=== PATIENT | male | born 1985 ===

== ENCOUNTER 2017-02-09 11:00 | Emergency (ER) | payer BC, MEDICAID ==
[2017-02-09 11:13] VITALS: BMI 21.5
[2017-02-09] MEDS ORDERED: Sodium Chloride 0.9% 1,000 ML IV STA (11:29)
[2017-02-09 11:35] VITALS: PULSE 78; RESP 20; O2SAT 98
[2017-02-09 11:54] LABS: BASO % 0.1 % (0.0-2.0); EOS % 0.1 % (0.0-4.0); HEMOGLOBIN 15.5 g/dL (12.0-18.0); LYMPH # 0.9 K/uL (1.0-4.3); LYMPH % 8.1 % (20.0-40.0); MEAN CELL VOLUME 90.1 fl (80.0-94.0); MEAN CORPUSCULAR HEMOGLOBIN 30.5 pg (27.0-31.0); MEAN CORPUSCULAR HGB CONC 33.9 g/dL (33.0-37.0); MEAN PLATELET VOLUME 8.2 fl (7.2-11.7); MONO # 0.3 K/uL (0.0-0.8); MONO % 2.3 % (0.0-10.0); NEUT # 10.2 K/uL (1.8-7.0); NEUT % 89.4 % (50.0-75.0); NRBC % 0.1 % (0.0-0.0); PLATELET COUNT 252 K/uL (130-400); RBC 5.09 Mil/uL (4.40-5.90); RED CELL DISTRIBUTION WIDTH 12.7 % (11.5-14.5); WHITE BLOOD COUNT 11.4 K/uL (4.8-10.8)
[2017-02-09 11:58] LABS: ALB/GLOB RATIO 1.6 (1.0-2.1); ALBUMIN 5.1 g/dL (3.5-5.0); ALT/SGPT 36 U/L (21-72); AST/SGOT 25 U/L (17-59); BLOOD UREA NITROGEN 14 mg/dl (9-20); CALCIUM 9.9 mg/dL (8.4-10.2); GFR AFRICAN-AMERICAN > 60; GFR NON-AFRICAN AMERICAN > 60; LIPASE 30 U/L (23-300)
--- NOTE | 2017-02-09 12:23 | ED PDOC ---
HPI: Abdomen Time Seen by Provider: 02/09/17 11:17 Chief Complaint (Nursing): GI Problem Chief Complaint (Provider): Vomiting History Per: Patient History/Exam Limitations: no limitations Onset/Duration Of Symptoms: Hrs Current Symptoms Are (Timing): Still Present Severity: Mild Associated Symptoms: Vomiting, Diarrhea Additional Complaint(s): Patient is a 31 year old male presenting to the ED complaining of vomiting since last night. Patient reports he had sushi last night. Vomiting is associated with several episodes of water diarrhea and body aches. Patient denies fever, chills, recent travel, or any medication. PMD: none Past Medical History Reviewed: Historical Data, Nursing Documentation, Vital Signs Vital Signs: Last Vital Signs Temp 97.6 F 02/09/17 12:55 Pulse 78 02/09/17 12:55 Resp 20 02/09/17 12:55 BP 128/74 02/09/17 12:55 Pulse Ox 98 02/09/17 12:55 - Medical History PMH: No Chronic Diseases - Surgical History Surgical History: No Surg Hx - Family History Family History: States: No Known Family Hx - Immunization History Hx Tetanus Toxoid Vaccination: (unk) Hx Influenza Vaccination: No Hx Pneumococcal Vaccination: No - Home Medications Home Medications: Ambulatory Orders Medication Instructions Recorded Loperamide [Loperamide HCl] 2 mg PO PRN PRN #24 cap 12/22/15 Ondansetron [Zofran Odt] 1 - 2 tab PO .Q4-6H PRN #20 odt 12/22/15 Ondansetron ODT [Zofran ODT] 4 mg PO Q8 PRN #12 odt 02/09/17 - Allergies Allergies/Adverse Reactions: Allergies Allergy/AdvReac Type Severity Reaction Status Date / Time No Known Allergies Allergy Verified 03/30/14 09:43 Review of Systems ROS Statement: Except As Marked, All Systems Reviewed And Found Negative Constitutional: Positive for: Other (body aches). Negative for: Fever, Chills Gastrointestinal: Positive for: Vomiting, Diarrhea. Negative for: Abdominal Pain Physical Exam - Reviewed Nursing Documentation Reviewed: Yes Vital Signs Reviewed: Yes - Physical Exam Appears: Positive for: Well, Non-toxic, No Acute Distress Head Exam: Positive for: ATRAUMATIC, NORMAL INSPECTION, NORMOCEPHALIC Skin: Positive for: Normal Color, Warm, DRY Eye Exam: Positive for: EOMI, Normal appearance, PERRL Neck: Positive for: Normal, Painless ROM Cardiovascular/Chest: Positive for: Regular Rate, Rhythm. Negative for: Gallop , Murmur Respiratory: Positive for: Normal Breath Sounds. Negative for: Accessory Muscle Use, Rhonchi, Respiratory Distress Gastrointestinal/Abdominal: Positive for: Normal Exam, Soft. Negative for: Tenderness, Mass, Distended, Guarding, Rebound Extremity: Positive for: Normal ROM Neurologic/Psych: Positive for: Alert, Oriented - Laboratory Results Result Diagrams: 02/09/17 11:40 02/09/17 11:40 - ECG O2 Sat by Pulse Oximetry: 98 (RA) Pulse Ox Interpretation: Normal - Progress Re-evaluation Time: 12:40 Condition: Re-examined, Improved Medical Decision Making Medical Decision Making: Time: 11:20 Impression: Vomiting and Diarrhea DDx: gastritis v gastroenteritis v food poisoning Plan: CBC Bentyl 10 mg PO IVF Zofran 4 mg IV Scribe Attestation Documented by Zeinab Wallace acting as a scribe for Morales Montgomery MD. Provider Attestation: All medical record entries made by the Scribe were at my direction and personally dictated by me. I have reviewed the chart and agree that the record accurately reflects my personal performance of the history, physical exam, medical decision making, and the department course for this patient. I have also personally directed, reviewed, and agree with the discharge instructions and disposition. Disposition - Clinical Impression Clinical Impression: Gastroenteritis - Patient ED Disposition Is Patient to be Admitted: No Doctor Will See Patient In The: Office Counseled Patient/Family Regarding: Studies Performed, Diagnosis, Need For Followup - Disposition Referrals: [facility] [Outside] Disposition: Routine/Home Disposition Time: 12:47 Condition: GOOD Additional Instructions: Follow up with your PCP in 2-3 days. Return for worsening. Prescriptions: Ondansetron ODT [Zofran ODT] 4 mg PO Q8 PRN #12 odt PRN Reason: Nausea/Vomiting Instructions: Gastroenteritis (ED)
[2017-02-09 12:57] VITALS: BP 128/74; TEMP 97.6
[2017-02-09 13:01] LABS: LYMPHOCYTE 7 % (20-50); MONOCYTE 2 % (0-10); NEUTROPHIL 91 % (42-75); PLATELET ESTIMATE NORMAL (NORMAL); TOTAL CELLS COUNTED 100
[2017-02-09 13:02] LABS: ANISOCYTOSIS SLIGHT; LARGE PLATELETS PRESENT
== END 2017-02-09 12:57 | disposition home or self-care (01) ==
LOC: H.ER 11:00
DX: K52.9 Noninfective gastroenteritis and colitis, unspecified (principal)

== ENCOUNTER 2017-04-15 06:52 | Emergency (ER) | payer MEDICAID, OTHER ==
[2017-04-15 07:12] VITALS: BMI 18.8
--- NOTE | 2017-04-15 08:19 | ED PDOC ---
HPI: General Adult Time Seen by Provider: 04/15/17 07:23 Chief Complaint (Nursing): Flu-like Symptoms History Per: Patient History/Exam Limitations: no limitations Onset/Duration Of Symptoms: Days (4), Gradual Current Symptoms Are (Timing): Still Present Severity: Moderate Additional History Per: Patient Additional Complaint(s): pt states Pt headache, loss of appetite, nausea, vomiting all day yesterday & generalized body aches x 4 day. no travel or sick contacts. similar sx to influenza in the past. mild burning cp constant for 4 days Past Medical History Reviewed: Historical Data, Nursing Documentation, Vital Signs Vital Signs: Last Vital Signs Temp 100.1 F H 04/15/17 07:10 Pulse 94 H 04/15/17 07:10 Resp 16 04/15/17 07:10 BP 124/67 04/15/17 07:10 Pulse Ox 99 04/15/17 09:52 - Medical History PMH: No Chronic Diseases - Family History Family History: States: Unknown Family Hx - Living Arrangements Living Arrangements: With Family - Social History Current smoker - smoking cessation education provided: No Drugs: Denies - Immunization History Hx Tetanus Toxoid Vaccination: (unk) Hx Influenza Vaccination: No Hx Pneumococcal Vaccination: No - Home Medications Home Medications: Ambulatory Orders Medication Instructions Recorded Ondansetron [Zofran Odt] 4 mg PO TID PRN #15 odt 04/15/17 - Allergies Allergies/Adverse Reactions: Allergies Allergy/AdvReac Type Severity Reaction Status Date / Time No Known Allergies Allergy Verified 03/30/14 09:43 Review of Systems ROS Statement: Except As Marked, All Systems Reviewed And Found Negative Constitutional: Positive for: Fever, Chills, Malaise Cardiovascular: Positive for: Chest Pain. Negative for: Palpitations Respiratory: Negative for: Shortness of Breath Gastrointestinal: Positive for: Nausea, Vomiting. Negative for: Abdominal Pain , Diarrhea Genitourinary Male: Negative for: Dysuria Musculoskeletal: Negative for: Neck Pain Neurological: Positive for: Headache. Negative for: Weakness, Numbness, Incoordination, Change in Speech, Confusion, Seizures, Altered Mental Status, Dizziness Physical Exam - Reviewed Nursing Documentation Reviewed: Yes Vital Signs Reviewed: Yes - Physical Exam Appears: Positive for: Uncomfortable Head Exam: Positive for: ATRAUMATIC, NORMAL INSPECTION, NORMOCEPHALIC Eye Exam: Positive for: Normal appearance, EOMI, PERRL ENT: Positive for: Pharynx Is (mild erythema), TM Is/Are (nml bl), Pharyngeal Erythema. Negative for: Sinus Pain/Drainage, Tonsillar Exudate, Tonsillar Swelling Neck: Positive for: Normal, Painless ROM, Supple Cardiovascular/Chest: Positive for: Regular Rate, Rhythm, Chest Non Tender. Negative for: Edema, Gallop, Murmur, Bradycardia, Tachycardia Respiratory: Positive for: Normal Breath Sounds. Negative for: Decreased Breath Sounds, Accessory Muscle Use, Crackles, Rales, Rhonchi, Stridor, Wheezing , Respiratory Distress Gastrointestinal/Abdominal: Positive for: Normal Exam, Bowel Sounds, Soft. Negative for: Tenderness Back: Positive for: Normal Inspection. Negative for: L CVA Tenderness, R CVA Tenderness Extremity: Positive for: Normal ROM. 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 Negative for: Motor/Sensory Deficits, Aphasia, Facial Droop - Laboratory Results Result Diagrams: 04/15/17 08:40 04/15/17 08:40 - ECG ECG: Positive for: Interpreted By In ECG Rhythm: Positive for: Normal QRS, Normal ST Segment, Sinus Rhythm. Negative for: ST/T Changes Interpretation Of Abn EKG: nsr no evidence of ischemia, poss incompete rbbb O2 Sat by Pulse Oximetry: 99 Pulse Ox Interpretation: Normal - Radiology X-Ray: Interpreted by In X-Ray Interpretation: No Acute Disease - Other Rad No standard instances X-Ray: Interpreted by In X-Ray Interpretation: kub 1 view nml bg pattern no dialted nowel loops, no fa under diaphragm - Progress ED Course And Treament: labs nml, advise zofran prn. close f/u with pmd. likely virsal syndrome. all of pt's questions were answered and pt agree's with plan. Re-evaluation Time: 09:15 Condition: Improved Disposition - Clinical Impression Clinical Impression: Influenza-like symptoms - Patient ED Disposition Is Patient to be Admitted: No Counseled Patient/Family Regarding: Studies Performed, Diagnosis, Need For Followup, Rx Given - Disposition Referrals: [facility] [Outside] (2 to 3 days) Disposition: Routine/Home Disposition Time: 09:15 Condition: GOOD Prescriptions: Ondansetron [Zofran Odt] 4 mg PO TID PRN #15 odt PRN Reason: Nausea/Vomiting Instructions: Viral Syndrome (ED) Forms: [employer] (Romanian), [facility] ED School/Work Excuse
[2017-04-15 08:52] LABS: BASO # 0.1 K/uL (0.0-0.2); BASO % 0.7 % (0.0-2.0); HEMATOCRIT 46.3 % (35.0-51.0); LYMPH # 0.8 K/uL (1.0-4.3); MEAN CELL VOLUME 91.4 fl (80.0-94.0); MEAN CORPUSCULAR HEMOGLOBIN 30.5 pg (27.0-31.0); MEAN CORPUSCULAR HGB CONC 33.3 g/dL (33.0-37.0); MEAN PLATELET VOLUME 8.6 fl (7.2-11.7); MONO # 0.9 K/uL (0.0-0.8); MONO % 9.3 % (0.0-10.0); NEUT # 7.5 K/uL (1.8-7.0); PLATELET COUNT 202 K/uL (130-400); RED CELL DISTRIBUTION WIDTH 12.7 % (11.5-14.5); WHITE BLOOD COUNT 9.2 K/uL (4.8-10.8)
[2017-04-15 09:01] LABS: ALB/GLOB RATIO 1.5 (1.0-2.1); ALKALINE PHOSPHATASE 69 U/L (38-126); ALT/SGPT 27 U/L (21-72); AMYLASE 72 U/L (30-110); AST/SGOT 24 U/L (17-59); BILIRUBIN,TOTAL 1.1 mg/dl (0.2-1.3); BLOOD UREA NITROGEN 13 mg/dl (9-20); CALCIUM 9.4 mg/dL (8.4-10.2); CARBON DIOXIDE 26 mmol/L (22-30); CHLORIDE 101 mmol/L (98-107); GFR AFRICAN-AMERICAN > 60; GLUCOSE,RANDOM 99 mg/dL (75-110); LIPASE 31 U/L (23-300); POTASSIUM 4.5 MMOL/L (3.6-5.0); SODIUM 139 mmol/l (132-148)
[2017-04-15 10:18] VITALS: BP 124/75; PULSE 82; RESP 14; TEMP 98.5; O2SAT 100
[2017-04-15 10:26] LABS: NEUTROPHIL 81 % (42-75); TOTAL CELLS COUNTED 100
--- NOTE | 2017-04-15 10:41 | RAD ---
HISTORY: Chest pain and n and v COMPARISON: 11/11/2014 FINDINGS: The lungs are well inflated and clear. The heart is normal in size. BOWEL: There is moderate amount of stool in the colon. The bowel gas pattern is nonspecific. No free intraperitoneal air. BONES: Normal. OTHER FINDINGS: None. IMPRESSION: 1. Constipation. Nonspecific bowel gas pattern. 2. Clear lungs.
--- NOTE | 2017-04-18 18:34 | CARD ---
APPROVED REPORT EKG Measurement Heart [id number] <Conclusion> Normal sinus rhythm Incomplete right bundle branch block Borderline ECG
== END 2017-04-15 10:20 | disposition home or self-care (01) ==
LOC: H.ER 06:52
DX: J11.1 Influenza due to unidentified influenza virus with other respiratory manifestations (principal)

== ENCOUNTER 2017-04-20 17:08 | Emergency (ER) | payer MEDICAID, OTHER ==
[2017-04-20 17:08] VITALS: BMI 18.8
[2017-04-20 17:15] VITALS: BP 124/78; PULSE 84; RESP 18; TEMP 99.7; O2SAT 97
[2017-04-20] MEDS ORDERED: Albuterol-Ipratrop 3 mg / 0.5 (3 ml) UD INH STA (17:26)
--- NOTE | 2017-04-20 17:33 | ED PDOC ---
HPI: CCC, URI, Sore Throat Time Seen by Provider: 04/20/17 17:20 Chief Complaint (Nursing): Cough, Cold, Congestion Chief Complaint (Provider): cough History Per: Patient History/Exam Limitations: no limitations Onset/Duration Of Symptoms: Days (x1 week) Current Symptoms Are (Timing): Still Present Additional Complaint(s): Colin Mack is a 31 year old male who presents to the emergency department with a complaint of worsening cough since his last visit to ED on 04/15/17. Patient stated he was diagnosed with the flu last week but most of symptoms resolved except lingering cough. He also reported taking cough syrup but experiences no improvements. Denied any fever or chills. PMD: none provided Past Medical History Reviewed: Historical Data, Nursing Documentation, Vital Signs Vital Signs: Last Vital Signs Temp 99.7 F H 04/20/17 17:11 Pulse 84 04/20/17 17:11 Resp 18 04/20/17 17:11 BP 124/78 04/20/17 17:11 Pulse Ox 97 04/20/17 18:01 - Medical History PMH: No Chronic Diseases - Surgical History Surgical History: No Surg Hx - Family History Family History: States: Unknown Family Hx - Social History Current smoker - smoking cessation education provided: No Alcohol: None Drugs: Denies - Immunization History Hx Tetanus Toxoid Vaccination: (unk) Hx Influenza Vaccination: No Hx Pneumococcal Vaccination: No - Home Medications Home Medications: Ambulatory Orders Medication Instructions Recorded Ondansetron [Zofran Odt] 4 mg PO TID PRN #15 odt 04/15/17 Albuterol HFA [Ventolin HFA 90 1 puff IH BID PRN #1 unit 04/20/17 mcg/actuation (8 g)] - Allergies Allergies/Adverse Reactions: Allergies Allergy/AdvReac Type Severity Reaction Status Date / Time No Known Allergies Allergy Verified 03/30/14 09:43 Review of Systems ROS Statement: Except As Marked, All Systems Reviewed And Found Negative Constitutional: Negative for: Fever, Chills Respiratory: Positive for: Cough Physical Exam - Reviewed Nursing Documentation Reviewed: Yes Vital Signs Reviewed: Yes - Physical Exam Appears: Positive for: Well, Non-toxic, No Acute Distress Head Exam: Positive for: ATRAUMATIC, NORMAL INSPECTION, NORMOCEPHALIC Skin: Positive for: Normal Color Eye Exam: Positive for: Normal appearance ENT: Positive for: Normal ENT Inspection Neck: Positive for: Normal Cardiovascular/Chest: Positive for: Regular Rate, Rhythm. Negative for: Chest Non Tender Respiratory: Positive for: Normal Breath Sounds. Negative for: Crackles, Rales , Rhonchi, Wheezing, Respiratory Distress Back: Positive for: Normal Inspection Extremity: Positive for: Normal ROM Neurologic/Psych: Positive for: Alert - ECG O2 Sat by Pulse Oximetry: 97 (RA) Pulse Ox Interpretation: Normal Medical Decision Making Medical Decision Making: Initial Impression: Cough Initial Plan: * CXR * Duoneb 3ml INH Time: 1739 --CXR FINDINGS: LUNGS: No active pulmonary disease. PLEURA: No significant pleural effusion identified. No pneumothorax apparent. CARDIOVASCULAR: Normal. OSSEOUS STRUCTURES: No significant abnormalities. VISUALIZED UPPER ABDOMEN: Normal. OTHER FINDINGS: None. IMPRESSION: No active disease. No significant interval change compared to the prior examination(s). Scribe Attestation: Documented by Hailey Louis, acting as a scribe for Gisela Tyler PA-C. Provider Scribe Attestation: All medical record entries made by the Scribe were at my direction and personally dictated by me. I have reviewed the chart and agree that the record accurately reflects my personal performance of the history, physical exam, medical decision making, and the department course for this patient. I have also personally directed, reviewed, and agree with the discharge instructions and disposition. Disposition - Clinical Impression Clinical Impression: Cough - Patient ED Disposition Is Patient to be Admitted: No Counseled Patient/Family Regarding: Diagnosis, Need For Followup, Rx Given - Disposition Referrals: [facility] [Outside] Disposition: Routine/Home Disposition Time: 18:40 Condition: GOOD Prescriptions: Albuterol HFA [Ventolin HFA 90 mcg/actuation (8 g)] 1 puff IH BID PRN #1 unit PRN Reason: Cough Instructions: Acute Cough (ED) Forms: [employer] (Tuvaluan)
--- NOTE | 2017-04-20 17:40 | RAD ---
HISTORY: cough x 2 weeks COMPARISON: 04/15/2017. TECHNIQUE: Chest PA and lateral FINDINGS: LUNGS: No active pulmonary disease. PLEURA: No significant pleural effusion identified. No pneumothorax apparent. CARDIOVASCULAR: Normal. OSSEOUS STRUCTURES: No significant abnormalities. VISUALIZED UPPER ABDOMEN: Normal. OTHER FINDINGS: None. IMPRESSION: No active disease. No significant interval change compared to the prior examination(s).
[2017-04-20] MEDS ORDERED: Albuterol 0.083% Inhal Sol (2.5 mg/3 mL) UD ONE (17:46)
[2017-04-20] MEDS ORDERED: Albuterol 0.083% Inhal Sol (2.5 mg/3 mL) UD INH STA (20:01)
== END 2017-04-20 23:11 | disposition home or self-care (01) ==
LOC: H.ER 17:08
DX: R05 Cough (principal)

== ENCOUNTER 2017-10-02 08:42 | Emergency (ER) | payer MEDICAID ==
[2017-10-02 08:43] VITALS: BMI 18.8
[2017-10-02 09:22] VITALS: BP 111/73; PULSE 70; RESP 18; TEMP 98.6; O2SAT 98
--- NOTE | 2017-10-02 09:28 | ED PDOC ---
Upper Extremity Pain/Injury Time Seen by Provider: 10/02/17 09:19 Chief Complaint (Nursing): Trauma History Per: Patient (Redeness and swelling right arm at sight of IV insertion. Swelling and redness have dramatically improved with no pain at present. Pt wanted to make sure their was no complications. Denies fever or chets pain or SOB) Past Medical History Vital Signs: Last Vital Signs Temp 98.6 F 10/02/17 09:17 Pulse 70 10/02/17 09:17 Resp 18 10/02/17 09:17 BP 111/73 10/02/17 09:17 Pulse Ox 98 10/02/17 09:17 - Medical History PMH: No Chronic Diseases - Family History Family History: States: Unknown Family Hx - Immunization History Hx Tetanus Toxoid Vaccination: (unk) Hx Influenza Vaccination: No Hx Pneumococcal Vaccination: No - Home Medications Home Medications: Ambulatory Orders Medication Instructions Recorded Dicyclomine [Bentyl] 20 mg PO Q6 PRN #12 tab 09/26/17 Naproxen 375 mg PO BID PRN #20 tablet 09/26/17 Ondansetron [Zofran Odt] 4 mg PO Q8 PRN #15 odt 09/26/17 - Allergies Allergies/Adverse Reactions: Allergies Allergy/AdvReac Type Severity Reaction Status Date / Time No Known Allergies Allergy Verified 03/30/14 09:43 Review of Systems Constitutional: Negative for: Fever Cardiovascular: Negative for: Chest Pain Respiratory: Negative for: Shortness of Breath Musculoskeletal: Negative for: Arm Pain Physical Exam - Physical Exam Appears: Positive for: Non-toxic, No Acute Distress Skin: Positive for: Normal Color Neck: Positive for: Normal, Painless ROM Cardiovascular/Chest: Positive for: Regular Rate, Rhythm Extremity: Positive for: Other (2 mm area of erythema right anticubital space . No swelling mass or tenderness. No distal erythema.) - ECG O2 Sat by Pulse Oximetry: 98 Disposition - Clinical Impression Clinical Impression: Phlebitis - Patient ED Disposition Is Patient to be Admitted: No Counseled Patient/Family Regarding: Diagnosis, Need For Followup - Disposition Referrals: Provider TIARA, [Primary Care Provider] - [facility] [Outside] Disposition: Routine/Home Disposition Time: 09:28 Condition: FAIR Instructions: Superficial Phlebitis
== END 2017-10-02 09:45 | disposition home or self-care (01) ==
LOC: SUPCPDRO 08:42 → H.ER 08:42
DX: I80.9 Phlebitis and thrombophlebitis of unspecified site (principal)

== ENCOUNTER 2018-01-25 12:30 | Emergency (ER) | payer MEDICAID ==
[2018-01-25 12:31] VITALS: BMI 18.8
[2018-01-25 12:47] VITALS: TEMP 98.6; O2SAT 99
[2018-01-25] MEDS ORDERED: Famotidine 20mg/50ml 20 MG/50 ML BAG IVPB STA (12:56)
[2018-01-25] MEDS ORDERED: Sodium Chloride 0.9% 1,000 ML IV STA (12:56)
[2018-01-25] MEDS ORDERED: Famotidine 20mg/50ml 20 MG/50 ML BAG IVPB ONE (13:00)
--- NOTE | 2018-01-25 13:01 | ED PDOC ---
HPI: Abdomen Time Seen by Provider: 01/25/18 12:56 Chief Complaint (Nursing): GI Problem Chief Complaint (Provider): Abdominal discomfort and Vomiting History Per: Patient History/Exam Limitations: no limitations Onset/Duration Of Symptoms: Days Outside of [place] travel?: No Current Symptoms Are (Timing): Still Present Context: Food Severity: None Pain Scale Rating Of: 2 Associated Symptoms: Vomiting. denies: Fever, Nausea, Diarrhea, Back Pain, Chest Pain, Urinary Symptoms Additional Complaint(s): 32 year old male presents to the emergency department complaining of abdominal discomfort and vomiting. The patient states yesterday while at a barbecue he was drinking an ate several types of food and this morning when he woke up he vomited twice, noticed some abdominal discomfort and also felt weak. Denies fever, diarrhea, constipation, nausea. Patient has taken no medications for food. Past Medical History Reviewed: Historical Data, Nursing Documentation, Vital Signs Vital Signs: Last Vital Signs Temp 98.6 F 01/25/18 12:45 Pulse 78 01/25/18 12:45 Resp 18 01/25/18 12:45 BP 115/68 01/25/18 12:45 Pulse Ox 99 01/25/18 13:12 - Medical History PMH: No Chronic Diseases - Surgical History Surgical History: No Surg Hx - Family History Family History: States: Unknown Family Hx - Social History Current smoker - smoking cessation education provided: No Ex-Smoker (has not smoked in the last 12 months): No Alcohol: Social Drugs: Denies - Immunization History Hx Tetanus Toxoid Vaccination: (unk) Hx Influenza Vaccination: No Hx Pneumococcal Vaccination: No - Home Medications Home Medications: Ambulatory Orders Medication Instructions Recorded Famotidine [Pepcid] 20 mg PO BID #10 tab 01/25/18 - Allergies Allergies/Adverse Reactions: Allergies Allergy/AdvReac Type Severity Reaction Status Date / Time No Known Allergies Allergy Verified 01/25/18 14:22 Review of Systems ROS Statement: Except As Marked, All Systems Reviewed And Found Negative Constitutional: Positive for: Fever, Weakness. Negative for: Chills Gastrointestinal: Positive for: Vomiting (x2 episodes), Abdominal Pain ( discomfort). Negative for: Nausea, Diarrhea, Constipation Physical Exam - Reviewed Nursing Documentation Reviewed: Yes Vital Signs Reviewed: Yes - Physical Exam Appears: Positive for: Non-toxic, No Acute Distress Head Exam: Positive for: NORMAL INSPECTION Skin: Positive for: Normal Color, Warm, Dry. Negative for: Rash Eye Exam: Positive for: Normal appearance, EOMI, PERRL. Negative for: Nystagmus ENT: Positive for: Normal ENT Inspection. Negative for: Nasal Congestion, Tonsillar Exudate, Tonsillar Swelling Neck: Positive for: Normal, Painless ROM, Supple Cardiovascular/Chest: Positive for: Regular Rate, Rhythm, Chest Non Tender. Negative for: Murmur, Tachycardia Respiratory: Positive for: Normal Breath Sounds. Negative for: Rales, Rhonchi, Wheezing, Respiratory Distress Gastrointestinal/Abdominal: Positive for: Bowel Sounds, Soft, Tenderness ( minimal epigastric tenderness). Negative for: Mass, Guarding, Rebound Back: Positive for: Normal Inspection. Negative for: L CVA Tenderness, R CVA Tenderness, Vertebral Tenderness Extremity: Positive for: Normal ROM. Negative for: Tenderness, Calf Tenderness , Deformity, Swelling Neurologic/Psych: Positive for: Alert, Oriented, Gait. Negative for: Motor/ Sensory Deficits - Laboratory Results Result Diagrams: 01/25/18 13:05 01/25/18 13:05 - ECG O2 Sat by Pulse Oximetry: 99 (RA) Pulse Ox Interpretation: Normal - Progress ED Course And Treament: pepcid 20mg iv zofran 4 mg iv ns 1 liter wide open Medical Decision Making Medical Decision Makin Initial Impression 32 year old male presenting with abdominal discomfort an vomiting Initial plan: * CMP * Lipase * CBC * Pepsid 20mg/50 mL premix * NS 1000 mls IV 1000 mls/hr * Zofran 4mg PO * Reevaluation ------ Documented by Jayde Solis acting as a scribe for Anna Moctezuma PA-C. All medical record entries made by the Scribe were at my direction and personally dictated by me. I have reviewed the chart and agree that the record accurately reflects my personal performance of the history, physical exam, medical decision making, and the department course for this patient. I have also personally directed, reviewed, and agree with the discharge instructions and disposition. Disposition - Clinical Impression Clinical Impression: Gastritis - Patient ED Disposition Is Patient to be Admitted: No - Disposition Referrals: [facility] [Outside] Disposition: Routine/Home Disposition Time: 14:24 Condition: FAIR Prescriptions: Famotidine [Pepcid] 20 mg PO BID #10 tab Instructions: Gastritis (DC)
[2018-01-25 13:18] LABS: BASO % 0.3 % (0.0-2.0); EOS % 0.1 % (0.0-4.0); HEMOGLOBIN 15.6 g/dL (12.0-18.0); LYMPH # 0.8 K/uL (1.0-4.3); LYMPH % 9.7 % (20.0-40.0); MEAN CELL VOLUME 91.4 fl (80.0-94.0); MEAN CORPUSCULAR HEMOGLOBIN 31.1 pg (27.0-31.0); MEAN PLATELET VOLUME 8.2 fl (7.2-11.7); MONO # 0.3 K/uL (0.0-0.8); MONO % 3.9 % (0.0-10.0); NEUT # 7.4 K/uL (1.8-7.0); PLATELET COUNT 250 K/uL (130-400); RED CELL DISTRIBUTION WIDTH 12.5 % (11.5-14.5); WHITE BLOOD COUNT 8.6 K/uL (4.8-10.8)
[2018-01-25 13:27] LABS: ALB/GLOB RATIO 1.2 (1.0-2.1); ALBUMIN 4.7 g/dL (3.5-5.0); ALT/SGPT 27 U/L (21-72); AST/SGOT 22 U/L (17-59); BLOOD UREA NITROGEN 13 mg/dl (9-20); CALCIUM 9.5 mg/dL (8.4-10.2); GFR AFRICAN-AMERICAN > 60; GFR NON-AFRICAN AMERICAN > 60; LIPASE 31 U/L (23-300)
[2018-01-25 14:52] VITALS: BP 111/71; PULSE 64; RESP 19
[2018-01-25 16:50] LABS: ANISOCYTOSIS SLIGHT; LYMPHOCYTE 13 % (20-50); MONOCYTE 3 % (0-10); NEUTROPHIL 84 % (42-75); OVALOCYTES SLIGHT; PLATELET ESTIMATE NORMAL (NORMAL); TEARDROP CELLS SLIGHT; TOTAL CELLS COUNTED 100
== END 2018-01-25 14:53 | disposition home or self-care (01) ==
LOC: H.ER 12:30
DX: K29.70 Gastritis, unspecified, without bleeding (principal); Z87.891 Personal history of nicotine dependence
CPT/HCPCS: 80053; 83690; 85025; 96365; 99283; J7030

== ENCOUNTER 2018-10-04 09:06 | Emergency (ER) | payer MEDICAID ==
[2018-10-04 09:13] VITALS: O2SAT 98
[2018-10-04 09:14] VITALS: BMI 19.2
[2018-10-04] MEDS ORDERED: Sodium Chloride 0.9% 1,000 ML IV STA (09:41)
--- NOTE | 2018-10-04 09:52 | ED PDOC ---
HPI:Nausea, Vomiting, Diarrhea Time Seen by Provider: 10/04/18 09:22 Chief Complaint (Nursing): GI Problem Chief Complaint (Provider): Vomiting, Nausea History Per: Patient History/Exam Limitations: no limitations Onset/Duration Of Symptoms: Days (last night) Current Symptoms Are (Timing): Still Present Associated Symptoms: Nausea, Vomiting. denies: Fever, Diarrhea, Back Pain, Urinary Symptoms Additional Complaint(s): 33 year old male presents to the ED for an evaluation of vomiting onset at 1AM. Patient reports of 6 episodes of vomit that is non-bilious and non-bloody associated with nausea and one episode of diarrhea today morning. Patient went out for dinner last night and currently cannot take in fluid or food. Otherwise, he denies abdominal pain, back pain, urinary symptoms, headache or dizziness. PMD: non [facility] provider Past Medical History Reviewed: Historical Data, Nursing Documentation, Vital Signs Vital Signs: Last Vital Signs Temp 97 F L 10/04/18 09:13 Pulse 94 H 10/04/18 09:13 Resp 18 10/04/18 09:13 BP 122/83 10/04/18 09:13 Pulse Ox 98 10/04/18 09:13 - Medical History PMH: No Chronic Diseases - Family History Family History: States: Unknown Family Hx - Social History Current smoker - smoking cessation education provided: No Alcohol: Social Drugs: Denies - Immunization History Hx Tetanus Toxoid Vaccination: (unk) Hx Influenza Vaccination: No Hx Pneumococcal Vaccination: No - Home Medications Home Medications: Ambulatory Orders Medication Instructions Recorded Famotidine [Pepcid] 20 mg PO DAILY #14 tab 06/20/18 Ondansetron ODT [Zofran ODT] 4 mg PO TID #12 odt 06/20/18 Ondansetron [Zofran] 4 mg PO Q8H #9 tab 10/04/18 - Allergies Allergies/Adverse Reactions: Allergies Allergy/AdvReac Type Severity Reaction Status Date / Time No Known Allergies Allergy Verified 01/25/18 14:22 Review of Systems ROS Statement: Except As Marked, All Systems Reviewed And Found Negative Constitutional: Negative for: Fever, Chills Gastrointestinal: Positive for: Nausea, Vomiting, Diarrhea. Negative for: Abdominal Pain Genitourinary Male: Negative for: Dysuria, Frequency, Hematuria Musculoskeletal: Negative for: Back Pain Neurological: Negative for: Headache, Dizziness Physical Exam - Reviewed Nursing Documentation Reviewed: Yes Vital Signs Reviewed: Yes - Physical Exam Appears: Positive for: Non-toxic, No Acute Distress Head Exam: Positive for: ATRAUMATIC, NORMAL INSPECTION, NORMOCEPHALIC Skin: Positive for: Normal Color, Warm, Dry Eye Exam: Positive for: EOMI, Normal appearance, PERRL ENT: Positive for: Other (dry mucous membrane) Neck: Positive for: Normal, Painless ROM Cardiovascular/Chest: Positive for: Regular Rate, Rhythm. Negative for: Murmur Respiratory: Positive for: Normal Breath Sounds. Negative for: Decreased Breath Sounds Gastrointestinal/Abdominal: Positive for: Normal Exam, Soft. Negative for: Tenderness, Guarding, Rebound Back: Positive for: Normal Inspection. Negative for: L CVA Tenderness, R CVA Tenderness Extremity: Positive for: Normal ROM. Negative for: Tenderness, Pedal Edema, Deformity Neurologic/Psych: Positive for: Alert, Oriented (x3). Negative for: Motor/Sensory Deficits - Laboratory Results Result Diagrams: 10/04/18 09:50 10/04/18 09:50 - ECG O2 Sat by Pulse Oximetry: 98 (RA) Pulse Ox Interpretation: Normal - Progress Condition: Improved Medical Decision Making Medical Decision Making: Time: 940 Impression: stomach virus Plan: CMP Lipase ED urine CBC w/ differential Normal saline 999mls/hr Pepcid 20mg Zofran 4mg IV insertion Urinalysis Reevaluation Scribe Attestation: Documented by Brooke Bowen, acting as a scribe for Ankita Rodriguez MD. Provider Scribe Attestation: All medical record entries made by the Scribe were at my direction and personally dictated by me. I have reviewed the chart and agree that the record accurately reflects my personal performance of the history, physical exam, medical decision making, and the department course for this patient. I have also personally directed, reviewed, and agree with the discharge instructions and disposition. Disposition - Clinical Impression Clinical Impression: Gastroenteritis - Patient ED Disposition Is Patient to be Admitted: No Doctor Will See Patient In The: Office Counseled Patient/Family Regarding: Diagnosis, Need For Followup, Rx Given - Disposition Referrals: Shawn Flores [Outside] Disposition: Routine/Home Disposition Time: 11:30 Condition: IMPROVED Prescriptions: Ondansetron [Zofran] 4 mg PO Q8H #9 tab Instructions: Viral Gastroenteritis Forms: Shawn Almaguer ([place]ian), [facility] School/Work Excuse - POA Present On Arrival: None
[2018-10-04 10:11] LABS: BASO % 0.6 % (0.0-2.0); EOS # 0.1 K/uL (0.0-0.7); EOS % 0.8 % (0.0-4.0); HEMOGLOBIN 15.3 g/dL (12.0-18.0); LYMPH # 1.8 K/uL (1.0-4.3); LYMPH % 21.4 % (20.0-40.0); MEAN CELL VOLUME 91.5 fl (80.0-94.0); MEAN CORPUSCULAR HEMOGLOBIN 30.5 pg (27.0-31.0); MEAN CORPUSCULAR HGB CONC 33.3 g/dL (33.0-37.0); MEAN PLATELET VOLUME 8.4 fl (7.2-11.7); MONO # 0.5 K/uL (0.0-0.8); MONO % 5.4 % (0.0-10.0); NEUT # 6.1 K/uL (1.8-7.0); NEUT % 71.8 % (50.0-75.0); RBC 5.02 Mil/uL (4.40-5.90); RED CELL DISTRIBUTION WIDTH 12.6 % (11.5-14.5); WHITE BLOOD COUNT 8.4 K/uL (4.8-10.8)
[2018-10-04 10:21] LABS: ALB/GLOB RATIO 1.3 (1.0-2.1); ALBUMIN 4.7 g/dL (3.5-5.0); ALT/SGPT 22 U/L (21-72); AST/SGOT 33 U/L (17-59); BLOOD UREA NITROGEN 16 mg/dl (9-20); CALCIUM 9.6 mg/dL (8.4-10.2); GFR NON-AFRICAN AMERICAN > 60; LIPASE 30 U/L (23-300)
[2018-10-04 10:49] LABS: URINE BACTERIA RARE (<OCC); URINE BILIRUBIN NEGATIVE (NEGATIVE); URINE BLOOD NEGATIVE (NEGATIVE); URINE CLARITY SLIGHTY-CLOUDY (Clear); URINE COLOR YELLOW (YELLOW); URINE GLUCOSE (UA) NEG (NEGATIVE); URINE LEUKOCYTE ESTERASE NEG Leu/uL (Negative); URINE PROTEIN 30 mg/dL (NEGATIVE)
[2018-10-04 12:00] VITALS: BP 120/78; PULSE 78; RESP 19; TEMP 97.6
== END 2018-10-04 12:00 | disposition home or self-care (01) ==
LOC: H.ER 09:06
DX: K52.9 Noninfective gastroenteritis and colitis, unspecified (principal); Z79.899 Other long term (current) drug therapy
CPT/HCPCS: 80053; 81003; 83690; 85025; 96374; 96375; 99283; J2405; J7030